=== PATIENT | female | born 1990 | race African-American/Black ===

== ENCOUNTER 2017-02-17 02:17 | Emergency (ER) | payer OTHER ==
[2017-02-17 02:38] LABS: URINE SOURCE CLEAN CATCH
[2017-02-17 02:44] LABS: URINE APPEARANCE CLOUDY; URINE BILIRUBIN NEG (NEG); URINE BLOOD NEG (NEG); URINE COLOR YELLOW; URINE GLUCOSE NEG (NEG); URINE KETONE TRACE (NEG); URINE LEUKOCYTE ESTERASE NEG (NEG); URINE NITRATE NEG (NEG); URINE PH 5.5 (5-8); URINE PROTEIN 1+ (NEG); URINE SPECIFIC GRAVITY 1.043 (1.003-1.035)
[2017-02-17 02:45] LABS: CULTURE INDICATED? YES; URINE BACTERIA AUWI 2+ (NEGATIVE); URINE SQUAMOUS EPITHELIAL CELL MANY /[HPF]
== END 2017-02-17 04:20 | disposition home or self-care (01) ==
LOC: CED 02:17
PROVIDERS: Nurse Practitioner
DX: R51 Headache (principal); Z98.890 Other specified postprocedural states
CPT/HCPCS: 36415; 81003; 84703; 87086; 96361; 96374; 99284; J1885